=== PATIENT | female | born 1955 ===

== ENCOUNTER 2024-08-17 08:14 | Outpatient (CLI) | payer MEDICARE | END 2024-08-17 08:15 | disposition home or self-care (01) | LOC: CSHMRI 08:14 | PROVIDERS: ATTEND Orthopaedic Surgery | DX: M77.8 Other enthesopathies, not elsewhere classified (principal); S62.001D Unspecified fracture of navicular [scaphoid] bone of right wrist, subsequent encounter for fracture with routine healing; S63.591A Other specified sprain of right wrist, initial encounter; M25.431 Effusion, right wrist; M65.88 Other synovitis and tenosynovitis, other site; M67.431 Ganglion, right wrist; M94.8X4 Other specified disorders of cartilage, hand ==